=== PATIENT | female | born 1995 | race African-American/Black ===

== ENCOUNTER 2016-09-16 15:25 | Emergency (ER) | payer MEDICAID ==
[2016-09-16 15:28] VITALS: BP 134/70; PULSE 108; RESP 20; TEMP 98.8; O2SAT 99
--- NOTE | 2016-09-16 16:42 | PD ---
HPI Chief Complaint: Cold / Flu Symptoms Time Seen by Provider: 16:42 Travel History International Travel<30 days: No Contact w/Intl Traveler<30days: No Traveled to known affect area: No History of Present Illness HPI 20-year-old Afro-[place] female presents the emergency department with five- day history of upper respiratory symptoms including headache, sore throat, postnasal drip, cough, and chest congestion. Patient denies nausea, vomiting, or wheezing. Cough is worse at certain times of the day. She denies ear pain. She feels worse today than she did yesterday. No significant fevers noted. Patient is allergic to seafood and peanuts. PFS Social History Alcohol Use: No Tobacco Use: No Substance Use: No Allergies-Medications (Allergen,Severity, Reaction): Coded Allergies: PEANUTS (Verified Allergy, Severe, Anaphylaxis, 09/16/16) Seafood (Verified Allergy, Severe, Anaphylaxis, 09/16/16) Reported Meds & Prescriptions Reported Meds & Active Scripts Active No Active Prescriptions or Reported Medications Review of Systems Except as stated in HPI: all other systems reviewed are Neg General / Constitutional: Positive: Chills, No: Fever Eyes: No: Visual changes HENT: Positive: Headaches, Sore Throat, Rhinitis, Rhinorrhea, Congestion, No: Neck Stiffness, Neck Pain, Gingival Bleeding, Dental Difficulties, Ear Discharge , Earache Cardiovascular: No: Chest Pain or Discomfort Respiratory: Positive: Cough, No: Shortness of Breath, Wheezing, Sneezing Gastrointestinal: No: Nausea, Vomiting, Diarrhea, Abdominal Pain Genitourinary: No: Dysuria Musculoskeletal: No: Pain Skin: No Rash Neurologic: No: Weakness Psychiatric: No: Depression Endocrine: No: Polydipsia Hematologic/Lymphatic: No: Easy Bruising Physical Exam Narrative GENERAL: Patient appears mildly ill but not septic. SKIN: Warm and dry. Normal color. Normal turgor. HEAD: Atraumatic. Normocephalic. Mild generalized sinus tenderness with percussion and palpation. EYES: Pupils equal and round. No scleral icterus. No injection or drainage. ENT: No nasal bleeding or discharge. Mucous membranes pink and moist. Posterior pharynx has injection and cobblestoning with postnasal drip present bilaterally. Tonsils are not significant. Uvula is midline. Airway is patent. TMs are clear bilaterally. NECK: Trachea midline. Supple nontender without lymphadenopathy. CARDIOVASCULAR: Regular rate and rhythm. RESPIRATORY: No accessory muscle use. Clear to auscultation. Breath sounds equal bilaterally. GASTROINTESTINAL: Abdomen soft, non-tender, nondistended. Hepatic and splenic margins not palpable. MUSCULOSKELETAL: Extremities without clubbing, cyanosis, or edema. No obvious deformities. NEUROLOGICAL: Awake and alert. No obvious cranial nerve deficits. Motor grossly within normal limits. Five out of 5 muscle strength in the arms and legs. Normal speech. PSYCHIATRIC: Appropriate mood and affect; insight and judgment normal. Data Data Last Documented VS Vital Signs Date Time Temp Pulse Resp B/P Pulse Ox O2 Delivery O2 Flow Rate FiO2 09/16/16 15:28 98.8 108 20 134/70 99 Room Air MDM Medical Decision Making Medical Screen Exam Complete: Yes Emergency Medical Condition: Yes Differential Diagnosis Upper respiratory infection. Bronchitis. Sinusitis. Postnasal drip. Narrative Course Patient is medically stable at time of exam She is treated with amoxicillin 875 twice a day 10 days. Patient is also given Flonase nasal spray 2 sprays each nostril daily. Patient taking [id number] cough medicine and Tylenol ibuprofen as needed. Patient should rest and push fluids and follow up if symptoms are not improving. Diagnosis Primary Impression: Sinusitis, acute Qualified Code: J01.40 - Acute pansinusitis, recurrence not specified Patient Instructions: General Instructions, Sinusitis (ED) Additional Instructions: She is treated with amoxicillin 875 twice a day 10 days. Patient is also given Flonase nasal spray 2 sprays each nostril daily. Patient taking [id number] cough medicine and Tylenol ibuprofen as needed. Patient should rest and push fluids and follow up if symptoms are not improving. Scripts No Active Prescriptions or Reported Meds Disposition: 01 DISCHARGE HOME Condition: Stable Christian Fong Sep 16, 2016 16:42
[2016-09-16] MEDS ORDERED: FLUT1SPR5 EACH NARE (16:51)
[2016-09-16] MEDS ORDERED: AMOX875T PO (16:51)
== END 2016-09-16 17:24 | disposition home or self-care (01) ==
LOC: NEPK 15:25
DX: J01.90 Acute sinusitis, unspecified (principal); R51 Headache; J02.9 Acute pharyngitis, unspecified; R05 Cough; R09.82 Postnasal drip
CPT/HCPCS: 99284

== ENCOUNTER 2017-07-14 17:42 | Emergency (ER) | payer MEDICAID ==
[~2017-07-14] VITALS: Ht 170.2 cm; Wt 82.0 kg
[~2017-07-14 17:42] MED LIST: AMOX875T PO; FLUT1SPR5 EACH NARE
[2017-07-14 18:15] VITALS: BP 137/73; PULSE 100; RESP 16; TEMP 98.6; O2SAT 99
--- NOTE | 2017-07-14 19:55 | PD ---
HPI Chief Complaint: Abdominal Pain Time Seen by Provider: 19:30 Travel History International Travel<30 days: No Contact w/Intl Traveler<30days: No Traveled to known affect area: No History of Present Illness HPI 21-year-old female presents to the emergency department for evaluation of pelvic cramping and vaginal spotting. Patient states she had a menstrual cycle which was mushroom grower than normal for her from the second through 09 July. She reports some intermittent pelvic cramping since then. Patient states she is unsure if she is . She denies any medical problems. She takes no prescribed medications. No history of abdominal surgeries. Current pain is 4/ 10, cramping, without radiation. She denies abnormal vaginal discharge or risk of STDs. She reports intermittent urinary symptoms. Moderate severity. PFSH Past Medical History Respiratory: Yes (SEASONAL ALLERGIES) ?: Not LMP: 07/07/17 Past Surgical History Surgical History: No Previous Surgery Social History Alcohol Use: Yes (OCC.) Tobacco Use: Yes (OCC.) Substance Use: No Allergies-Medications (Allergen,Severity, Reaction): Coded Allergies: Fish Containing Products (Unverified Allergy, Severe, Anaphylaxis, 07/14/17) peanut (Unverified Allergy, Severe, Anaphylaxis, 07/14/17) Reported Meds & Prescriptions Reported Meds & Active Scripts Active No Active Prescriptions or Reported Medications Review of Systems Except as stated in HPI: all other systems reviewed are Neg Physical Exam Narrative GENERAL: Well-nourished, well-developed female patient, afebrile. SKIN: Focused skin assessment warm/dry. HEAD: Normocephalic. Atraumatic. EYES: No scleral icterus. No injection or drainage. NECK: Supple, trachea midline. No JVD or lymphadenopathy. CARDIOVASCULAR: Regular rate and rhythm without murmurs, gallops, or rubs. RESPIRATORY: Breath sounds equal bilaterally. No accessory muscle use. Lung sounds are clear to auscultation. GASTROINTESTINAL: Abdomen soft, non-tender, nondistended. MUSCULOSKELETAL: No cyanosis, or edema. BACK: Nontender without obvious deformity. No CVA tenderness. GENITOURINARY: Normal external genitalia without lesions or erythema. Vaginal vault without blood or drainage. Cervical os was closed without drainage. No cervical motion tenderness. Uterus nontender and nonenlarged. Bilateral adnexa nontender without masses. This exam was done with RN at bedside. Data Data Last Documented VS Vital Signs Date Time Temp Pulse Resp B/P (MAP) Pulse Ox O2 Delivery O2 Flow Rate FiO2 07/14/17 18:15 98.6 100 16 137/73 (94) 99 Orders Orders Gc And Chlamydia Pcr (07/14/17 19:41) Wet Prep Profile (07/14/17 19:41) Urinalysis - C+S If Indicated (07/14/17 19:41) Ed Urine Pregnancytest Poc (07/14/17 19:41) Labs Laboratory Tests Test 07/14/17 19:30 07/14/17 19:55 Urine Color YELLOW Urine Turbidity CLEAR Urine pH 6.5 Urine Specific [place] 1.022 Urine Protein TRACE mg/dL Urine Glucose (UA) NEG mg/dL Urine Ketones NEG mg/dL Urine Occult Blood NEG Urine Nitrite NEG Urine Bilirubin NEG Urine Urobilinogen 2.0 MG/DL Urine Leukocyte Esterase NEG Urine WBC 3 /hpf Urine Squamous Epithelial Cells 7 /hpf Urine Mucus FEW /lpf Microscopic Urinalysis Comment CULT NOT INDICATED Clue Cells (Wet Prep) NONE SEEN Vaginal Trichomonas (Wet Prep) NONE SEEN Vaginal Yeast (Wet Prep) NONE SEEN MDM Medical Decision Making Medical Screen Exam Complete: Yes Emergency Medical Condition: Yes Medical Record Reviewed: Yes Differential Diagnosis UTI versus versus vaginitis Narrative Course 21-year-old female presents to the emergency department for evaluation of intermittent pelvic cramping. She appears well on exam. No abdominal tenderness to palpation. UA, urine test, swab for chlamydia/ gonorrhea and wet prep profile will be completed. UA is negative for acute infection. UPT is negative. Wet prep is negative for clue cells, trichomonas, yeast. Patient appears really well on exam. Her abdominal exam is benign. Pelvic exam is also unremarkable. Patient is stable to follow-up with a clinic business manager. She is return for any acute worsening of symptoms. The patient was discharged in stable condition with instructions, including return instructions and follow up instructions. Diagnosis Primary Impression: Pelvic cramping Referrals: Recruitment Director call for appointment Patient Instructions: General Instructions, Pelvic Pain in Women (ED) Additional Instructions: Follow-up with clinic business manager. Return to the emergency department for any acute worsening of symptoms Med/Other Pt SpecificInfo: No Change to Meds Scripts No Active Prescriptions or Reported Meds Disposition: 01 DISCHARGE HOME Condition: Stable Odalis Apple July 14, 2017 19:55
[2017-07-14 20:12] LABS: BILIRUBIN, URINE NEG (NEG); BLOOD, URINE NEG (NEG); GLUCOSE,URINE NEG (NEG); KETONE, URINE NEG (NEG); PH, URINE 6.5 (5.0-8.5); URINE COLOR YELLOW (YELLW/STRAW)
[2017-07-14 20:13] LABS: MUCUS URINE FEW /lpf (OCC); NITRITE,URINE NEG (NEG); SQUAMOUS EPITHELIAL CELL URINE 7 /hpf (0-5); URINE LEUKOCYTE ESTERASE NEG (NEG)
== END 2017-07-14 21:05 | disposition home or self-care (01) ==
LOC: NEPC 17:42
DX: R10.2 Pelvic and perineal pain (principal); Z72.0 Tobacco use
CPT/HCPCS: 81001; 84703; 87210; 87491; 87591; 99284